=== PATIENT | female | born 1985 | race Caucasian/White ===

== ENCOUNTER 2017-03-12 18:33 | Emergency (ER) | payer OTHER ==
[2017-03-12 18:56] VITALS: BP 126/85
--- NOTE | 2017-03-12 18:58 | EDM.PDOC ---
ED HPI GENERAL MEDICAL PROBLEM - General Chief Complaint: ENT Problem Stated Complaint: LEFT SIDE JAW AND TOOTH PAIN Time Seen by Provider: 03/12/17 18:52 - History of Present Illness INITIAL COMMENTS - FREE TEXT/NARRATIVE: 31-year-old female presents to the emergency room with dental pain. Patient had a root canal left lower molar nearly a month ago and this is starting to get very tender. The patient is taking amoxicillin 500 mg twice a day for sinus infection. She is not entirely sure what the doses of the amoxicillin. Over the last week or so this tooth has progressively been getting worse. She's felt warm at times but isn't sure how warm. The patient has a lot of dental work to be done. 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) Other Treatments EDUCATION INSTRUCTOR: norco Left Face Pain Score (Numeric/FACES): 7 - Related Data Allergies Allergy/AdvReac Type Severity Reaction Status Date / Time No Known Allergies Allergy Verified 03/12/17 18:56 Home Meds: Home Meds Levothyroxine [Synthroid] 50 mcg PO ACBREAKFAST 11/28/14 [History] Sertraline [Zoloft] 1 tab PO DAILY 11/28/14 [History] Zolpidem [Ambien] 1 tab PO BEDTIME PRN 11/28/14 [History] traMADol [Ultram] 2 tab PO Q8HR PRN 11/28/14 [History] Hydrocodone/Acetaminophen [Hydrocodon-Acetaminophen 5-325] 10 - 325 mg PO Q6H PRN 05/30/15 [History] Amoxicillin [IMW: Amoxicillin] 500 mg PO TID 03/12/17 [History] Past Medical History HEENT History: Reports: Impaired Vision Other HEENT History: 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 glasses 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: Musculoskeletal History: Reports: Fibromyalgia Psychiatric History: Reports: Anxiety, Depression Endocrine/Metabolic History: Reports: Hypothyroidism - Past Surgical History HEENT Surgical History: Reports: Tonsillectomy, Other (See Below) Social & Family History - Family History Family Medical History: Noncontributory - Tobacco Use Smoking Status *Q: Current Every Day Smoker Years of Tobacco use: 13 Packs/Tins Daily: 1 Used Tobacco, but Quit: No Second Hand Smoke Exposure: No - Alcohol Use Days Per Week of Alcohol Use: 0 - Recreational Drug Use Recreational Drug Use: No Recreational Drug Use Frequency: Daily - Living Situation & Occupation Living situation: Reports: , with Family Occupation: Unemployed ED ROS ENT - Review of Systems Review Of Systems: See Below Constitutional: Reports: Fever HEENT: Reports: Dental Pain, Sinus Problem. Denies: Ear Pain, Eye Pain Respiratory: Reports: No Symptoms Cardiovascular: Reports: No Symptoms GI/Abdominal: Reports: No Symptoms ED EXAM, ENT - Physical Exam Exam: See Below Exam Limited By: No Limitations General Appearance: Alert, No Apparent Distress Ears: Normal External Exam, Normal Canal, Hearing Grossly Normal, Normal TMs Nose: Normal Inspection Mouth/Throat: Other (She is generally poor dentition posterior pharynx is normal limits normal gums secondary changes to poor dentition. On the affected tooth she appears to have a temporary on top of this at this point there is no surrounding erythema but the tooth is exquisitely tender.) Head: Atraumatic, Normocephalic Neck: Normal Inspection, Supple, Non-Tender. No: Lymphadenopathy (L), Lymphadenopathy (R) Respiratory/Chest: No Respiratory Distress, Lungs Clear, Normal Breath Sounds Cardiovascular: Regular Rate, Rhythm, No Edema, No Murmur Course - Vital Signs Last Recorded V/S: Last Vital Signs Temp 37.2 C 03/12/17 18:49 Pulse 72 03/12/17 18:49 Resp 18 03/12/17 18:49 BP 126/85 03/12/17 18:49 Pulse Ox 100 03/12/17 18:49 - Re-Assessments/Exams Free Text/Narrative Re-Assessment/Exam: 03/12/17 19:19 It is uncertain how much amoxicillin she is taking but she is getting worse while taking the amoxicillin at this point will stop amoxicillin start her on clindamycin 300 mg 3 times daily Departure - Departure Time of Disposition: 19:12 Disposition: Home, Self-Care 01 Clinical Impression: Dental caries - Discharge Information Instructions: Dental Caries Referrals: Anabela Baker PA-C [Primary Care Provider] - Forms: ED Department Discharge Additional Instructions: Return to the emergency room with any questions or problems. You have been started on clindamycin 300 mg #40 from initiating in the waiting room take one 3 times a day until all gone stop the amoxicillin. Followup with your dentist as soon as possible.
== END 2017-03-12 19:23 | disposition home or self-care (01) ==
LOC: JD.ED 18:33
DX: K02.9 Dental caries, unspecified (principal); F41.9 Anxiety disorder, unspecified; F32.9 Major depressive disorder, single episode, unspecified; E03.9 Hypothyroidism, unspecified; F17.210 Nicotine dependence, cigarettes, uncomplicated; Z98.890 Other specified postprocedural states; Z79.899 Other long term (current) drug therapy
CPT/HCPCS: 99283

== ENCOUNTER 2018-03-09 16:50 | Emergency (ER) | payer OTHER ==
[2018-03-09 17:08] VITALS: BP 111/82
--- NOTE | 2018-03-09 17:36 | EDM.PDOC ---
ED HPI GENERAL MEDICAL PROBLEM - General Chief Complaint: Lower Extremity Injury/Pain Stated Complaint: RIGHT PINKY TOE INJURY Time Seen by Provider: 03/09/18 17:00 Source of Information: Reports: Patient History Limitations: Reports: No Limitations - History of Present Illness INITIAL COMMENTS - FREE TEXT/NARRATIVE: This is a 32 year old female who comes in after accidentally bumping her right 5th toe into a brick. She states the toe dislocated out to the side and she was able to reduce it back herself. She said she heard a "popping" noise when she put it back in place. She stated she was in a lot of pain so she took 1/2 hydrocodone that she has for her fibromyalgia and the pain has gone down to 3/ 10. She is unable to put her shoe on without pain and is concerned she may have fractured the toe. This is the first time this has ever happened. No other symptoms. 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: Other (see below) Other Treatments EQUIPMENT MAN: hydrocodone Right 5-Little toe Pain Score (Numeric/FACES): 4 - Related Data Allergies Allergy/AdvReac Type Severity Reaction Status Date / Time No Known Allergies Allergy Verified 03/12/17 18:56 Home Meds: Home Meds Levothyroxine [Synthroid] 50 mcg PO ACBREAKFAST 11/28/14 [History] Sertraline [Zoloft] 1 tab PO DAILY 11/28/14 [History] Zolpidem [Ambien] 1 tab PO BEDTIME PRN 11/28/14 [History] traMADol [Ultram] 2 tab PO Q8HR PRN 11/28/14 [History] Hydrocodone/Acetaminophen [Hydrocodon-Acetaminophen 5-325] 10 - 325 mg PO Q6H PRN 05/30/15 [History] Past Medical History HEENT History: Reports: Impaired Vision 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: Musculoskeletal History: Reports: Fibromyalgia Psychiatric History: Reports: Anxiety, Depression Endocrine/Metabolic History: Reports: Hypothyroidism - Past Surgical History HEENT Surgical History: Reports: Tonsillectomy, Other (See Below) Social & Family History - Family History Family Medical History: Noncontributory - Tobacco Use Smoking Status *Q: Former Smoker Used Tobacco, but Quit: Yes Month/Year Tobacco Last Used: 6 months - Caffeine Use Caffeine Use: Reports: Coffee, Soda - Recreational Drug Use Recreational Drug Use: No - Living Situation & Occupation Living situation: Reports: , with Family Occupation: Unemployed Review of Systems - Review of Systems Review Of Systems: See Below Constitutional: Reports: No Symptoms Ears: Reports: No Symptoms Respiratory: Reports: No Symptoms Cardiovascular: Reports: No Symptoms Musculoskeletal: Reports: Joint Pain (right 5th toe 3/10 pain) Skin: Reports: Bruising (right 5th toe) Neurological: Reports: No Symptoms ED EXAM, GENERAL - Physical Exam Exam: See Below Exam Limited By: No Limitations General Appearance: Alert, WD/WN, Mild Distress Ears: Hearing Grossly Normal Respiratory/Chest: No Respiratory Distress, Lungs Clear, Normal Breath Sounds, No Accessory Muscle Use, Chest Non-Tender Cardiovascular: Normal Peripheral Pulses, Regular Rate, Rhythm Peripheral Pulses: 3+: Posterior Tibial (L), Posterior Tibial (R), Dorsalis Pedis (L), Dorsalis Pedis (R) Back Exam: Normal Inspection, Full Range of Motion, NT Extremities: Normal Inspection, Normal Capillary Refill, Joint Swelling (right 5th toe, 3/10 pain) Neurological: Alert, Oriented, CN II-XII Intact (grossly), Normal Cognition, No Motor/Sensory Deficits Skin Exam: Warm, Dry, Intact, Normal Color, No Rash, Erythema (right 5th toe), Increased Warmth (right 5th toe), Other (contusion to right 5th toe) ED TRAUMA EXTREMITY PROCEDURES - Splinting Right 5th Digit Pre-Procedure NV Status: Normal Post-Procedure NV Status: Normal Splint Material: Candido Tape Applied & Form Fitted By: Nurse Provider Post-Splint Application NV Check: NV Status Normal Complications: No Course - Vital Signs Last Recorded V/S: Last Vital Signs Temp 98.8 F 03/09/18 17:05 Pulse 74 03/09/18 17:05 Resp 20 03/09/18 17:05 BP 111/82 03/09/18 17:05 Pulse Ox 99 03/09/18 17:05 - Re-Assessments/Exams Free Text/Narrative Re-Assessment/Exam: 03/09/18 17:42 Offered Xray but explained would not change treatment plan. Pt would like to forgo the Xray. Pt right 5th toe candido-taped to right 4th toe, pt will be discharged with post- op shoe. Departure - Departure Time of Disposition: 17:30 Disposition: Home, Self-Care 01 Condition: Good Clinical Impression: Closed fracture of phalanx of foot - Discharge Information Instructions: Toe Fracture, [id number] Referrals: Anabela Baker PA-C [Primary Care Provider] - Forms: ED Department Discharge Additional Instructions: Keep the toe taped to the toe directly next to it- "Candido tape" will act as a splint for the toe to heal properly Keep the area clean and protected- Wear the post-op shoe until you are able to wear normal footwear again Rest, Ice, pain management as needed. Return to ED if worsening of symptoms. Follow up with your primary care provider as needed.
== END 2018-03-09 18:10 | disposition home or self-care (01) ==
LOC: JD.ED 16:50
DX: S92.501A Displaced unspecified fracture of right lesser toe(s), initial encounter for closed fracture (principal); W22.8XXA Striking against or struck by other objects, initial encounter
CPT/HCPCS: 99283

== ENCOUNTER 2018-06-12 19:13 | Emergency (ER) | payer OTHER ==
[2018-06-12 19:32] VITALS: BP 148/103
--- NOTE | 2018-06-12 20:18 | EDM.PDOC ---
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 She has not had a fever. She saw her PCP, Anabela Baker, on 06/04/2018. The patient states that no tests or chest x-ray were performed, however, the patient was prescribed both clindamycin and prednisone. The patient does not know what her diagnosis was. She states that she took these medicines and initially felt that she was improving, however, she accidentally skipped her prednisone this past Monday and Monday, 06/08/2018 , 06/09/2018, and states that she started feeling worse, with swelling of her shoulders, neck, and face. She states that she also was hot to the touch. When she resumed the prednisone on 06/10/2018, she states that she started feeling better, but now feels worse again today. The patient is also concerned that she may have a retained partial tampon, although does not recall removing a broken tampon. She states that her LMP ended approximately 10 days ago. She is concerned because she states that she has a whitish with blood-tinged vaginal discharge that is malodorous. No itch. She reports pelvic pain for the past 3 days. The patient reports that she has a Mirena IUD. She is concerned that a retained partial tampon may be the cause of all of her symptoms. Pelvic Pain Score (Numeric/FACES): 2 - Related Data Allergies Allergy/AdvReac Type Severity Reaction Status Date / Time No Known Allergies Allergy Verified 06/12/18 19:32 Home Meds: Home Meds Levothyroxine [Synthroid] 50 mcg PO BEDTIME 11/28/14 [History] Sertraline [Zoloft] 1 tab PO BEDTIME 11/28/14 [History] Zolpidem [Ambien] 1 tab PO BEDTIME PRN 11/28/14 [History] traMADol [Ultram] 2 tab PO Q8HR PRN 11/28/14 [History] Hydrocodone/Acetaminophen [Hydrocodon-Acetaminophen 5-325] 10 - 325 mg PO Q6H PRN 05/30/15 [History] Past Medical History HEENT History: Reports: Impaired Vision Other HEENT History: Wears glasses 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: Psychiatric History: Reports: Anxiety, Depression, Other (See Below) ( Fibromyalgia) Endocrine/Metabolic History: Reports: Hypothyroidism, Obesity/BMI 30+ - Past Surgical History HEENT Surgical History: Reports: Myringotomy w Tube(s) (bilateral), Oral Surgery (wisdom teeth extraction), Tonsillectomy Social & Family History - Family History Family Medical History: Noncontributory - Tobacco Use Smoking Status *Q: Former Smoker Years of Tobacco use: 14 Packs/Tins Daily: 0.5 Month/Year Tobacco Last Used: Quit 2016 - Caffeine Use Caffeine Use: Reports: Coffee, Soda - Alcohol Use Alcohol Use History: Yes Alcohol Use Frequency: Socially - Recreational Drug Use Recreational Drug Use: No - Living Situation & Occupation Living situation: Reports: , with Spouse, with Family (3 kids + ' s parents) Occupation: Unemployed ED ROS GENERAL - Review of Systems Review Of Systems: ROS reveals no pertinent complaints other than HPI. ED EXAM, GENERAL - Physical Exam Exam: See Below Exam Limited By: No Limitations General Appearance: Alert, WD/WN, No Apparent Distress Eye Exam: Bilateral Eye: EOMI, Normal Inspection Ears: Normal External Exam, Normal Canal, Hearing Grossly Normal, Other (Scar noticed on the right TM, but no associated erythema or bulging, and the right canal is normal. Left ear exam entirely normal.) Nose: Normal Inspection, No Blood, Other (Bilateral nasal mucosa edema) Throat/Mouth: Normal Inspection, Normal Lips, Normal Teeth, Normal Gums, Normal Oropharynx, Normal Voice, No Airway Compromise Head: Atraumatic, Normocephalic Neck: Normal Inspection, Supple, Non-Tender, Full Range of Motion. No: Lymphadenopathy (L), Lymphadenopathy (R) Respiratory/Chest: No Respiratory Distress, Lungs Clear, Normal Breath Sounds, No Accessory Muscle Use. No: Crackles, Rhonchi, Wheezing, Prolonged Expiration Cardiovascular: Normal Peripheral Pulses, Regular Rate, Rhythm, No Edema, No Gallop, No JVD, No Murmur, No Rub Peripheral Pulses: 4+: Radial (L), Radial (R) GI/Abdominal: Normal Bowel Sounds, Soft, Non-Tender, No Organomegaly, No Distention, No Abnormal Bruit, No Mass, Other (Obese) (Female) Exam: Normal External Exam, Normal Speculum Exam, Other (No foreign body, tampon or otherwise, found. Vaginal wet prep and culture obtained). No: Cervical Discharge, Vaginal Bleeding, Vaginal Discharge, Vaginal Lesions Rectal (Female) Exam: Deferred Back Exam: Normal Inspection, Full Range of Motion, NT Extremities: Normal Inspection, Normal Range of Motion, No Pedal Edema, Normal Capillary Refill Neurological: Alert, Oriented, Normal Cognition, No Motor/Sensory Deficits Psychiatric: Normal Affect Skin Exam: Warm, Dry, Intact, Normal Color, No Rash Course - Vital Signs Last Recorded V/S: Last Vital Signs Temp 36.7 C 06/12/18 19:28 Pulse 73 06/12/18 19:28 Resp 18 06/12/18 19:28 BP 148/103 H 06/12/18 19:28 Pulse Ox 99 06/12/18 19:28 - Orders/Labs/Meds Orders: Active Orders 24 hr Category Date Time Status Chest 2V [CR] Stat Exams 06/12/18 19:56 Taken CULTURE GENITAL [RM] Stat Lab 06/12/18 20:08 Received Labs: Laboratory Tests 06/12/18 06/12/18 Range/Units 20:16 20:16 WBC 15.67 H (3.98-10.04) K/mm3 RBC 4.67 (3.98-5.22) M/mm3 Hgb 13.2 (11.2-15.7) gm/L Hct 39.7 (34.1-44.9) % MCV 85.0 (79.4-94.8) fl MCH 28.3 (25.6-32.2) pg MCHC 33.2 (32.2-35.5) g/dl RDW Std Deviation 42.8 (36.4-46.3) fL Plt Count 415 H (182-369) K/mm3 MPV 9.1 L (9.4-12.3) fl Neutrophils % (Manual) 83 H (40-60) % Band Neutrophils % 0 (0-10) % Lymphocytes % (Manual) 14 L (20-40) % Atypical Lymphs % 0 % Monocytes % (Manual) 2 (2-10) % Eosinophils % (Manual) 0 L (0.7-5.8) % Basophils % (Manual) 0 L (0.1-1.2) Myelocytes % 1 Platelet Estimate Adequate Plt Morphology Comment Normal RBC Morph Comment Normal Sodium 140 (136-145) mEq/L Potassium 4.0 (3.5-5.1) mEq/L Chloride 104 (98-107) mEq/L Carbon Dioxide 25 (21-32) mEq/L Anion Gap 15.0 (5-15) BUN 14 (7-18) mg/dL Creatinine 0.8 (0.55-1.02) mg/dL Est Cr Clr Drug Dosing 95.38 mL/min Estimated GFR (MDRD) > 60 (>60) mL/min BUN/Creatinine Ratio 17.5 (14-18) Glucose 100 (74-106) mg/dL Calcium 8.8 (8.5-10.1) mg/dL Total Bilirubin 0.1 L (0.2-1.0) mg/dL AST 17 (15-37) U/L ALT 28 (14-59) U/L Alkaline Phosphatase 124 H (46-116) U/L Total Protein 8.1 (6.4-8.2) g/dl Albumin 3.7 (3.4-5.0) g/dl Globulin 4.4 gm/dL Albumin/Globulin Ratio 0.8 L (1-2) - Re-Assessments/Exams Free Text/Narrative Re-Assessment/Exam: 06/12/18 20:42 2-view chest radiograph appears to be grossly normal. Cardiac silhouette is within normal limits. No pulmonary vascular congestion. No pleural effusions. No focal infiltrate. No pneumothorax. Formal read per the Radiologist pending. 06/12/18 21:15 Test results discussed with the patient and her . It appears that the patient has a viral URI with cough. I explained that there are no prescription or kioj-[id number] medicines that will help with this condition, that it will simply have to run its course. I am recommending that she discontinue both the clindamycin and prednisone that she was prescribed 8 days ago - I see no indication for either of them. I also explained that I found no abnormality on her vaginal exam, and that her wet prep returned normal. Departure - Departure Time of Disposition: 21:17 Disposition: Home, Self-Care 01 Condition: Good Clinical Impression: Viral URI with cough - Discharge Information *PRESCRIPTION DRUG MONITORING PROGRAM REVIEWED*: Not Applicable *COPY OF PRESCRIPTION DRUG MONITORING REPORT IN PATIENT BROOKE: Not Applicable Referrals: Anabela Baker PA-C [Primary Care Provider] - Forms: ED Department Discharge Additional Instructions: You were seen in the emergency room for nasal and chest congestion and cough, and shortness of breath, as well as for concern about a possible retained tampon. Workup in the ER included blood work, a chest x-ray, a vaginal wet prep, and vaginal culture. Your entire workup was unremarkable. You do not have pneumonia. You do not have bronchitis. No tampon or other foreign body was found in your vagina, your pelvic exam appeared to be normal, and your wet prep returned entirely normal. Based on your history, physical examination, lab tests, and chest x-ray, you are MOST LIKELY suffering from a viral URI with cough. We recommend that you discontinue the clindamycin and prednisone that you were prescribed 8 days ago, as they will not help you, and could hurt. We recommend that you throw the remaining clindamycin away in the trash. Do not flush it down the toilet. Unfortunately, there are no [id number] medicines to help with a viral URI - it will simply have to run its course. Follow-up with your PCP, Anabela Baker, as needed. If any other problems, please do not hesitate to return to the ER. - My Orders Last 24 Hours: My Active Orders 06/12/18 19:56 Chest 2V [CR] Stat 06/12/18 20:08 CULTURE GENITAL [RM] Stat - Assessment/Plan Last 24 Hours: My Active Orders 06/12/18 19:56 Chest 2V [CR] Stat 06/12/18 20:08 CULTURE GENITAL [RM] Stat
--- NOTE | 2018-06-13 07:19 | CR ---
Chest: Two views of the chest were obtained. Comparison: Prior chest x-ray of 04/08/14. Heart size and mediastinum are normal. Lungs are clear. Bony structures are unremarkable. Diaphragms are flattened on the lateral view compatible with hyperinflation. Impression: 1. Lungs are hyperinflated. Please correlate if patient has history of asthma. 2. Nothing acute is otherwise seen on two-view chest x-ray. Diagnostic code #2
== END 2018-06-12 21:30 | disposition home or self-care (01) ==
LOC: JD.ED 19:13
DX: J06.9 Acute upper respiratory infection, unspecified (principal); E66.9 Obesity, unspecified; E03.9 Hypothyroidism, unspecified; Z79.899 Other long term (current) drug therapy; Z87.891 Personal history of nicotine dependence
CPT/HCPCS: 36415; 71046; 71046-26; 80053; 85007; 85027; 87070; 87077; 87186; 87210; 87808; 99283; 99284

== ENCOUNTER 2020-11-14 16:04 | Emergency (ER) | payer OTHER ==
[2020-11-14] MEDS ORDERED: HYDROmorphone 1 MG/ML Syringe IM ONE (16:37)
[2020-11-14] MEDS ORDERED: Promethazine 25 MG/ML SDV IM ONE (16:37)
--- NOTE | 2020-11-14 16:44 | EDM.PDOC ---
ED HPI GENERAL MEDICAL PROBLEM - General Chief Complaint: Back Pain or Injury Stated Complaint: RASH/NECK AND BACK PAIN/POST HERNIA SURGERY Time Seen by Provider: 11/14/20 16:37 Source of Information: Reports: Patient, Family (spouse) History Limitations: Reports: No Limitations - History of Present Illness INITIAL COMMENTS - FREE TEXT/NARRATIVE: 35-year-old female presents to the ED in the accompaniment of her . Patient had laparoscopic assisted bilateral inguinal hernia raphe repair on November 12. Is currently you have developed diffuse musculoskeletal pain particular in your upper back more so on the right side than on the left side with marked paraspinal muscle spasm on examination. Diffuse lower back or lumbar spine pain is evident as well on examination. It appears that you are suffering an exacerbation of your fibromyalgia syndrome. Pain from surgery is inadequately controlled at present. I believe that if we can keep the pain under control you will feel more relaxed and be able to breathe a bit better. There is seems to be no problems with your lungs in terms of good air entry to both lung oleary and oxygen levels were 99 to 100% while in the ED. No concerns identified for blood clots etc. You have a diffuse slightly erythematous rash which has the characteristic of sandpaper across your upper abdomen from below the breasts to the lateral aspects of both sides of your abdomen which is in the distribution that Betadine was placed during your surgery. Betadine is a sterilization agents to prevent bacterial infection from occurring from surgery. Its major ingredient is iodine which you appear to be allergic to. This is caused a contact dermatitis in this area. Treatment is to be triamcinolone 0.1% cream to be applied to this area twice daily until gone. Expect marked improvement in about 3 days time. Surgical wounds are healing well at this time. Note today and tomorrow are your worse days postop and then you will start to improve. It usually takes a full 7 to 8 days to start to recover fully from the type of surgery you have undergone. Onset: Gradual Onset Date: 11/13/20 Duration: Day(s):, Constant, Getting Worse Location: Reports: Abdomen (Generalized abdominal rash which is burning and itching.), Back (Use upper and lower back pain worse on the right side as compared to the left.), Other (Sense of difficulty breathing but oxygen levels are normal at 99%.) Quality: Reports: Other (Back pain is described as deep aching muscle pain worse with movement such as breathing or coughing. Even moving her neck i.e. flexion- extension makes the back pain worse. She has a subjective sensation of dyspnea but again it appears to be more musculoskeletal in origin as the oxygen levels are 99% on room air. She has a diffuse sandpaperlike slightly raised rash across her abdomen in the distribution of Betadine application for her abdominal surgery.) Severity: Moderate (8 out of 10) Improves with: Reports: None, Other (Patient has been using a combination of Dupree, tramadol which she has been on for many years and 1 tablet of Percocet 5/325 mg every 6 hours with no relief of the pain.) Worsens with: Reports: Other (Deep breathing walking), Movement Context: Reports: Other (Patient has chronic fibromyalgia syndrome which I believe is been aggravated by recent surgery on her abdomen.). Denies: Activity, Exercise, Lifting, Sick Contact, Trauma Associated Symptoms: Reports: Loss of Appetite, Malaise, Rash, Other (Diffuse musculoskeletal pain particularly upper back). 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 INTEL: Reports: Other (see below) Upper Back Pain Score (Numeric/FACES): 8 - Related Data Allergies Allergy/AdvReac Type Severity Reaction Status Date / Time No Known Allergies Allergy Verified 11/14/20 16:30 Home Meds: Home Meds Levothyroxine [Synthroid] 50 mcg PO BEDTIME 11/28/14 [History] Sertraline [Zoloft] 1 tab PO BEDTIME 11/28/14 [History] Zolpidem [Ambien] 1 tab PO BEDTIME PRN 11/28/14 [History] traMADol [Ultram] 2 tab PO Q8HR PRN 11/28/14 [History] Hydrocodone/Acetaminophen [Hydrocodon-Acetaminophen 5-325] 10 - 325 mg PO Q6H PRN 05/30/15 [History] Triamcinolone Acetonide [Kenalog 0.1% Crm] 30 gm .XX BID #1 tube 11/14/20 [Rx] oxyCODONE 5 mg PO Q6H PRN 11/14/20 [History] oxyCODONE HCl/Acetaminophen [Percocet 5-325 mg Tablet] 1 - 2 each PO Q4H PRN #20 tablet 11/14/20 [Rx] Past Medical History HEENT History: Reports: Impaired Vision Other HEENT History: Wears glasses 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: Musculoskeletal History: Reports: Fibromyalgia Psychiatric History: Reports: Anxiety, Depression, Other (See Below) Endocrine/Metabolic History: Reports: Hypothyroidism, Obesity/BMI 30+ - Past Surgical History HEENT Surgical History: Reports: Myringotomy w Tube(s), Oral Surgery, Tonsillectomy GI Surgical History: Reports: Hernia, Abdominal Social & Family History - Family History Family Medical History: No Pertinent Family History - Caffeine Use Caffeine Use: Reports: Coffee, Soda - Living Situation & Occupation Living situation: Reports: , with Spouse, with Family (3 kids + 's parents) Occupation: Unemployed ED [facility] GENER[facility] - Review of Systems Review Of Systems: See Below Constitutional: Reports: Malaise, Weakness, Fatigue (Sleep), Decreased Appetite ( due to back pain). Denies: Fever, Chills HEENT: Reports: No Symptoms Respiratory: Reports: Shortness of Breath. Denies: Wheezing, Pleuritic Chest Pain, Cough, Sputum, Hemoptysis, Other Cardiovascular: Reports: Lightheadedness. Denies: Chest Pain, Blood Pressure Problem, Claudication, Dyspnea on Exertion, Edema, Orthopnea, Palpitations Endocrine: Reports: Fatigue GI/Abdominal: Reports: Abdominal Pain (At surgical sites umbilicus right lower quadrant left upper quadrant.), Decreased Appetite, Nausea. Denies: Constipation, Diarrhea, Difficulty Swallowing, Distension, Flatus, Hematemesis, Hematochezia, Melena, Mucous in Stool, Vomiting, Other : Reports: No Symptoms Musculoskeletal: Reports: No Symptoms, Shoulder Pain, Back Pain (Gus thoracic back pain worse on the right side as compared to the left. Diffuse pain also throughout the lumbar spine.), Other (Is on tramadol daily due to fibromyalgia syndrome.) Skin: Reports: Other (And rash which is itching and burning across the entire abdomen from costal margins down to inguinal areas and to mid axillary line bilaterally. This is in the distribution of Betadine that was placed to cleanse the abdomen prior to surgery) Neurological: Reports: No Symptoms, Dizziness, Headache, Difficulty Walking (Back pain), Weakness. Denies: Numbness, Paresthesia, Pre-Existing Deficit, Syncope (Mild), Tingling, Tremors, Trouble Speaking Psychiatric: Reports: Depression ED EXAM, UPPER BACK/NECK PAIN - Physical Exam Exam: See Below Exam Limited By: No Limitations General Appearance: Alert, WD/WN, Moderate Distress, Other (Patient appears to be feeling quite uncomfortable. Temperature is 36.8. Heart rate 81 and sinus respiratory 16 with O2 sats 99% room air BP 128/82.) Eye Exam: Bilateral Eye: Normal Inspection, PERRL (No blepharal pallor or scleral icterus.) Neck Exam: Normal Alignment, Normal Inspection, Muscle Spasm (Patient has mild bilateral paraspinal muscles tenderness adjacent to her cervical spine. Full flexion of the neck exacerbates her thoracic back pain.), Painful Range of Motion, Paraspinous Muscle Tender Nexus Criteria: No: Posterior, Midline Cervical Tenderness, Evidence of Intoxication, Altered Level of Consciousness, Painful Distraction Injuries Cardiovascular/Respiratory: Regular Rate, Rhythm, No M/R/G, Normal Peripheral Pulses, No JVD, Normal Breath Sounds, No Respiratory Distress GI/Abdominal: Normal Bowel Sounds, Soft, Non-Tender, No Organomegaly, Pelvis Stable, Other (Multiple surgical wounds that have been closed with skin glue appear to be healing adequately. These are from a laparoscopic surgical wounds.) Back Exam: Decreased Range of Motion, Muscle Spasm (She has diffuse paraspinal muscles tenderness and spasm throughout the thoracic spine worse on the right side as compared to the left. Diffuse tenderness throughout the lumbar spine paraspinal musculature as well without significant spasm.) Extremities: Normal Inspection, Normal Range of Motion, Non-Tender, No Pedal Edema Neurologic: director of operations for therapy II-XII nml As Tested, No Motor/Sensory Deficits, Alert, Normal Mood/Affect, Oriented x 3 Psychiatric: Tearful Skin Exam: Normal Color, Warm/Dry Lymphatic: No Adenopathy Course - Vital Signs Last Recorded V/S: Last Vital Signs Temp 36.9 C 11/14/20 17:08 Pulse 79 11/14/20 17:08 Resp 16 11/14/20 17:08 BP 122/79 11/14/20 17:08 Pulse Ox 100 11/14/20 17:08 - Orders/Labs/Meds Meds: Medications Discontinued Medications Generic Name Dose Route Start Last Admin Trade Name Freq PRN Reason Stop Dose Admin Hydromorphone HCl 1 mg 11/14/20 16:37 11/14/20 16:50 Dilaudid IM 11/14/20 16:38 1 mg ONETIME ONE Administration Promethazine HCl 25 mg 11/14/20 16:37 11/14/20 16:50 Phenergan IM 11/14/20 16:38 25 mg ONETIME ONE Administration - Radiology Interpretation Free Text/Narrative:: 35-year-old female presents to the ED for evaluation of diffuse since having surgery a laparoscopic-assisted inguinal hernia repair bilaterally was done on November 12. He takes tramadol 50 mg 4 times daily for fibromyalgia syndrome. She has been using few tablets of Dupree 5/325 mg strength without much relief. She has been taking Percocet tabs 5 325 mg strength 1 every 6 hours with out satisfactory pain relief. Is also been using Motrin 600 mg every 6 hours as instructed. Exam reveals diffuse paraspinal muscle tenderness throughout the thoracic spine worse on the right side as compared to the left. No definitive rib head subluxation identified although rib heads 10 and 11 on the right side are slightly prominent. Good air entry to both lung oleary although she has a subjective sensation of dyspnea. I believe it is secondary to musculoskeletal pain. Rash on her abdomen is secondary to allergy to Betadine i.e. the iodine component is produced a scarlatiniform itchy rash across the abdomen from costal margin down to the inguinal area and to the mid axillary line bilaterally. This will be treated with triamcinolone cream 0.1% to be applied twice daily until better. She was treated with an intramuscular injection of Dilaudid 1 mg and Phenergan 25 mg in the ED for acute back pain and musculoskeletal pain relief. Advised heat application to sore areas 1/2-hour out of every 4 hours while at home. She was reassured that today and tomorrow will be her worst days postoperative Tristan and then things will start to slowly improve. Discharged with prescription for Percocet 5/325mg tabs --1-2 tabs Q 4hrs prn for pain relief. 20 tabs provided. Follow-up with surgeon as planned. Departure - Departure Time of Disposition: 17:03 Disposition: Home, Self-Care 01 Condition: Fair Clinical Impression: Acute bilateral thoracic back pain Contact dermatitis Qualifiers: Contact dermatitis type: irritant Contact dermatitis trigger: other chemical product Qualified Code(s): L24.5 - Irritant contact dermatitis due to other chemical products - Discharge Information *PRESCRIPTION DRUG MONITORING PROGRAM REVIEWED*: Not Applicable *COPY OF PRESCRIPTION DRUG MONITORING REPORT IN PATIENT BROOKE: Not Applicable Prescriptions: Triamcinolone Acetonide [Kenalog 0.1% Crm] 30 gm .XX BID #1 tube oxyCODONE HCl/Acetaminophen [Percocet 5-325 mg Tablet] 1 - 2 each PO Q4H PRN #20 tablet PRN Reason: pain relief. Instructions: Acute Back Pain, Adult, Contact Dermatitis, [id number] Referrals: Anabela Baker PA-C [Primary Care Provider] - Forms: ED Department Discharge Additional Instructions: Evaluation in the emergency room today in regards to generalized pain particular in your upper back worse on the right side as compared to the left with paraspinal muscle spasm on examination. Also some diffuse pain in the lower back which appears to be musculoskeletal in origin as well. You have a history of fibromyalgia which appears to been exacerbated by recent surgery. Surgical wounds from bilateral inguinal hernia repair are healing adequately. There is a diffuse contact dermatitis rash across the entire abdomen secondary to allergic reaction to iodine or Betadine solution used to cleanse the skin and prevent wound infection from surgery. I would advise no further use of Betadine or added to your list of allergies. Treatment is Kenalog 0.1% cream to be applied to the area twice daily until better. Usually was should be markedly improved in 3 days time. Continue pain management with Percocet 5/325 mg tabs 1 or 2 every 4-6 hours as necessary for pain relief in combination with Motrin 600 mg every 6 hours to relieve pain and inflammation. Continue stool softeners on a daily basis to prevent constipation from pain medications.You did recieve an injection of Dilaudid and Phenergan in the ED for acute relief of pain and nausea. Likely cause some degree of sedation and you may well have to have a nap for a few hours. Heating pad to upper back for 1/2-hour out of every 4 hours will help relieve some of the musculoskeletal pain as well. Sepsis Event Note (ED) - Evaluation Sepsis Screening Result: No Definite Risk - Focused Exam Vital Signs: Vital Signs Temp Pulse Resp BP Pulse Ox 11/14/20 17:08 36.9 C 79 16 122/79 100 11/14/20 16:28 36.8 C 81 16 128/82 98
[2020-11-14 17:09] VITALS: BP 122/79; PULSE 79
== END 2020-11-14 17:09 | disposition home or self-care (01) ==
LOC: JD.ED 16:04
DX: M54.6 Pain in thoracic spine (principal); L24.5 Irritant contact dermatitis due to other chemical products; E03.9 Hypothyroidism, unspecified; E66.9 Obesity, unspecified; Z79.899 Other long term (current) drug therapy
CPT/HCPCS: 96372; 99283; J1170; J2550; 99284

== ENCOUNTER 2021-01-14 14:47 | Emergency (ER) | payer OTHER ==
[2021-01-14 15:29] VITALS: BP 145/87; PULSE 82
[2021-01-14] MEDS ORDERED: Clindamycin HCl 150 MG Cap PO ONE (15:57)
--- NOTE | 2021-01-14 15:57 | EDM.PDOC ---
ED HPI GENERAL MEDICAL PROBLEM - General Chief Complaint: Respiratory Problem Stated Complaint: CHEST PAIN/EAR COMPLAINT/COVID+ Time Seen by Provider: 01/14/21 15:48 Source of Information: Reports: Patient, RN Notes Reviewed History Limitations: Reports: No Limitations - History of Present Illness INITIAL COMMENTS - FREE TEXT/NARRATIVE: Patient is a 35-year-old female who presents to the ER for the evaluation of her multiple complaints. Patient is Covid positive, was diagnosed on January 06. Patient notes that she was seen at the drive-through for her suspicious symptoms, patient has been staying at home and has been quarantined. She notes she has had a cough, congestion, ear pain, chest discomfort/pressure, and her whole head just feels "plugged". Patient notes that she usually gets a sinus infection after resulted virus, so she became worried about that. She is not had any fevers or chills this. She notes she has a history of chronic pain syndrome,, she is not getting any colored sputum up with and states that the myalgias have been pretty severe. She is having some nausea and vomiting, and she notes that her primary care provider did provide her with some nausea meds for this. She is not had any overlying diarrhea. She also concerned about an upper left dental complaint, she states that she has had pain in this tooth before, but notes that she is likely not able to get into the dentist while being quarantined for COVID-19. She was unsure about how to get antibiotics for this. Bilateral Ear Pain Score (Numeric/FACES): 5 - Related Data Allergies Allergy/AdvReac Type Severity Reaction Status Date / Time No Known Allergies Allergy Verified 11/14/20 16:30 Home Meds: Home Meds Levothyroxine [Synthroid] 50 mcg PO BEDTIME 11/28/14 [History] Sertraline [Zoloft] 150 mg PO BEDTIME 11/28/14 [History] Zolpidem [Ambien] 10 mg PO BEDTIME 11/28/14 [History] traMADol [Ultram] 2 tab PO TID 11/28/14 [History] Hydrocodone/Acetaminophen [Hydrocodon-Acetaminophen 5-325] 10 - 325 mg PO Q6H PRN 05/30/15 [History] Triamcinolone Acetonide [Kenalog 0.1% Crm] 30 gm .XX BID #1 tube 11/14/20 [Rx] Clindamycin HCl 300 mg PO TID 7 Days #21 capsule 01/14/21 [Rx] Past Medical History HEENT History: Reports: Impaired Vision Other HEENT History: 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 glasses 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: Musculoskeletal History: Reports: Fibromyalgia Psychiatric History: Reports: Anxiety, Depression Endocrine/Metabolic History: Reports: Hypothyroidism, Obesity/BMI 30+ - Infectious Disease History Infectious Disease History: Reports: Novel Coronavirus - Past Surgical History HEENT Surgical History: Reports: Myringotomy w Tube(s), Oral Surgery, Tonsillectomy GI Surgical History: Reports: Hernia, Abdominal Social & Family History - Family History Family Medical History: No Pertinent Family History - Tobacco Use Tobacco Use Status *Q: Current Every Day Tobacco User Years of Tobacco use: 12 Packs/Tins Daily: 0.3 - Caffeine Use Caffeine Use: Reports: Tea - Recreational Drug Use Recreational Drug Use: No - Living Situation & Occupation Living situation: Reports: , with Spouse, with Family (3 kids + 's parents) Occupation: Unemployed ED ROS GENERAL - Review of Systems Review Of Systems: Comprehensive ROS is negative, except as noted in HPI. ED EXAM, GENERAL - Physical Exam Exam: See Below Exam Limited By: No Limitations General Appearance: Alert, WD/WN, No Apparent Distress Ears: Normal External Exam, Normal Canal, Hearing Grossly Normal, Normal TMs Throat/Mouth: Normal Inspection, Normal Lips, Normal Teeth (there is dental pain to left upper molar area), Normal Gums, Normal Oropharynx, Normal Voice, No Airway Compromise Head: Atraumatic, Normocephalic Neck: Normal Inspection Respiratory/Chest: No Respiratory Distress, Lungs Clear, Normal Breath Sounds, No Accessory Muscle Use, Chest Non-Tender Cardiovascular: Normal Peripheral Pulses, Regular Rate, Rhythm, No Edema Peripheral Pulses: 2+: Radial (L), Radial (R) Extremities: Normal Inspection, Normal Capillary Refill Neurological: Alert, Oriented, Normal Cognition, No Motor/Sensory Deficits Psychiatric: Normal Affect, Normal Mood Skin Exam: Warm, Dry, Intact, Normal Color, No Rash Course - Vital Signs Last Recorded V/S: Last Vital Signs Temp 97.2 F 01/14/21 15:28 Pulse 82 01/14/21 15:28 Resp 20 01/14/21 15:28 BP 145/87 H 01/14/21 15:28 Pulse Ox 100 01/14/21 15:28 - Orders/Labs/Meds Labs: Laboratory Tests 01/14/21 01/14/21 Range/Units 16:16 16:16 WBC 2.82 L (3.98-10.04) K/mm3 RBC 4.16 (3.98-5.22) M/mm3 Hgb 12.2 (11.2-15.7) gm/dl Hct 36.7 (34.1-44.9) % MCV 88.2 D (79.4-94.8) fl MCH 29.3 (25.6-32.2) pg MCHC 33.2 (32.2-35.5) g/dl RDW Std Deviation 41.1 (36.4-46.3) fL Plt Count 249 D (182-369) K/mm3 MPV 9.4 (9.4-12.3) fl Neut % (Auto) 50.3 (34.0-71.1) % Lymph % (Auto) 42.6 (19.3-51.7) % [place] % (Auto) 6.4 (4.7-12.5) % Eos % (Auto) 0.7 (0.7-5.8) Baso % (Auto) 0.0 L (0.1-1.2) % Neut # (Auto) 1.42 L (1.56-6.13) K/mm3 Lymph # (Auto) 1.20 (1.18-3.74) K/mm3 [place] # (Auto) 0.18 L (0.24-0.36) K/mm3 Eos # (Auto) 0.02 L (0.04-0.36) K/mm3 Baso # (Auto) 0.00 L (0.01-0.08) K/mm3 Sodium 144 (136-145) mEq/L Potassium 3.5 (3.5-5.1) mEq/L Chloride 105 (98-107) mEq/L Carbon Dioxide 30 (21-32) mEq/L Anion Gap 12.5 (5-15) BUN 9 (7-18) mg/dL Creatinine 0.7 (0.55-1.02) mg/dL Est Cr Clr Drug Dosing 106.01 mL/min Estimated GFR (MDRD) > 60 (>60) mL/min BUN/Creatinine Ratio 12.9 L (14-18) Glucose 92 (74-106) mg/dL Calcium 7.8 L (8.5-10.1) mg/dL Total Bilirubin 0.2 (0.2-1.0) mg/dL AST 15 (15-37) U/L ALT 24 (14-59) U/L Alkaline Phosphatase 91 (46-116) U/L Total Protein 7.2 (6.4-8.2) g/dl Albumin 3.6 (3.4-5.0) g/dl Globulin 3.6 gm/dL Albumin/Globulin Ratio 1.0 (1-2) Meds: Medications Discontinued Medications Generic Name Dose Route Start Last Admin Trade Name Jordanq PRN Reason Stop Dose Admin Clindamycin HCl 600 mg 01/14/21 15:57 01/14/21 16:45 Clindamycin Hcl 150 Mg Cap PO 01/14/21 15:58 600 mg ONETIME ONE Administration - Re-Assessments/Exams Free Text/Narrative Re-Assessment/Exam: 01/14/21 16:01 Patient presents to the ER for her upper tooth pain, and COVID-19 symptoms, we will go ahead get a basic chest x-ray, CBC and CMP for initial evaluation, and will start her on clindamycin as she states this seems to work best for her regarding tooth complaints. Patient verbalized understanding at this time. 01/14/21 16:51 Patient CBC has come back, and is mildly low on her white count which is typical for viral illnesses. Patient chest x-ray also demonstrates no acute abnormalities or sign of Covid like pneumonia. Metabolic panel still pending. 01/14/21 16:59 CMP has returned is unremarkable, we will go ahead and discharge her home with general recommendations of a prescription for clindamycin for her tooth infection. Departure - Departure Time of Disposition: 16:59 Disposition: Home, Self-Care 01 Condition: Good Clinical Impression: COVID-19, Pain, dental - Discharge Information *PRESCRIPTION DRUG MONITORING PROGRAM REVIEWED*: No *COPY OF PRESCRIPTION DRUG MONITORING REPORT IN PATIENT BROOKE: No Prescriptions: Clindamycin HCl 300 mg PO TID 7 Days #21 capsule Instructions: 10 Things You Can Do to Manage Your COVID-19 Symptoms at Home - [facility] Referrals: Olivia,Anabela L, PA-C [Primary Care Provider] - Forms: ED Department Discharge Additional Instructions: You have been evaluated in the ED for your ongoing Covid symptoms and dental pain. You have been provided with a script for clindamycin please take this medication as directed. Please note this antibiotic can take up to 48 hours to provide coverage. If you do not notice an improvement in the swelling within 3 days time I recommend you seek care for reevaluation for change in antibiotics. This antibiotic can cause diarrhea, recommend that you start a probiotic while taking this medication. You may use hot pack/ ice packs to the affected area as tolerated in 15-20 minute intervals. You also had a chest x-ray done at today's visit, and some basic labs for ongoing management of your COVID-19 symptoms, and everything is in line for a viral infection like COVID-19, your x-ray was not remarkable for COVID-19 pneumonia. Please follow all other recommendations set forth by your Covid bods developer, for quarantine purposes and other management. You may continue to use your previously prescribed pain medications for ongoing body aches and discomfort. Your medication was electronically sent to the [place] pharmacy located in the [facility] grocery store. Please return to the ED if your symptoms change or worsen. Sepsis Event Note (ED) - Evaluation Sepsis Screening Result: No Definite Risk - Focused Exam Vital Signs: Vital Signs Temp Pulse Resp BP Pulse Ox 01/14/21 15:28 97.2 F 82 20 145/87 H 100
--- NOTE | 2021-01-14 16:31 | CR ---
Chest: Portable view of the chest was obtained. Comparison: Prior chest x-ray of 06/12/18. Heart size and mediastinum are within normal limits. Lungs are clear with no acute parenchymal change. Bony structures show nothing acute. Impression: 1. Nothing acute is appreciated on portable chest x-ray. Diagnostic code #1
== END 2021-01-14 17:35 | disposition home or self-care (01) ==
LOC: JD.ED 14:47
DX: U07.1 COVID-19 (principal); K08.89 Other specified disorders of teeth and supporting structures; E03.9 Hypothyroidism, unspecified; E66.9 Obesity, unspecified; Z72.0 Tobacco use; Z68.29 Body mass index [BMI] 29.0-29.9, adult; Z79.899 Other long term (current) drug therapy
CPT/HCPCS: 36415; 71045; 80053; 85025; 99283; A9270

== ENCOUNTER 2021-07-16 08:02 | Emergency (ER) | payer OTHER ==
[2021-07-16] MEDS ORDERED: Ondansetron 4 MG/2 ML SDV IVPUSH ONE (09:09)
[2021-07-16] MEDS ORDERED: Sodium Chloride 0.9% 1,000 ML IV STA (09:09)
[2021-07-16] MEDS ORDERED: Sodium Chloride 0.9% 10 ML Syringe FLUSH PRN ×2 (09:09→10:53)
[2021-07-16] MEDS ORDERED: HYDROmorphone 1 MG/ML Syringe IVPUSH ONE (09:11)
[2021-07-16] MEDS ORDERED: FLU Vacc QS2021-22 36MOS UP/PF 60 MCG/0.5 ML Syringe IM ONE (09:15)
--- NOTE | 2021-07-16 09:17 | EDM.PDOC ---
ED HPI GENERAL MEDICAL PROBLEM - General Chief Complaint: Abdominal Pain Stated Complaint: ABD PAIN Time Seen by Provider: 07/16/21 08:52 Source of Information: Reports: Patient History Limitations: Reports: No Limitations - History of Present Illness INITIAL COMMENTS - FREE TEXT/NARRATIVE: The patient presents with abdominal pain. The pain started a few days ago. The pain is in the RUQ and LLQ. She has nausea but no vomiting. She had a bowel movement yesterday and there was a little blood. She felt feverish and had chills. She has no cough, congestion, runny nose chest pain or shortness of breath. She has no dysuria or diarrhea. She still has her appendix and gallbladder. Onset: Gradual Duration: Day(s): Location: Reports: Abdomen Quality: Reports: Sharp Severity: Moderate Improves with: Reports: None Worsens with: Reports: None Associated Symptoms: Reports: Fever/Chills, Nausea/Vomiting. Denies: Chest Pain, Cough, Headaches, Shortness of Breath Upper Mid-Anterior Abdomen Pain Score (Numeric/FACES): 6 - Related Data Allergies Allergy/AdvReac Type Severity Reaction Status Date / Time No Known Allergies Allergy Verified 07/16/21 08:59 Home Meds: Home Meds Levothyroxine [Synthroid] 50 mcg PO BEDTIME 11/28/14 [History] Sertraline [Zoloft] 150 mg PO BEDTIME 11/28/14 [History] Zolpidem [Ambien] 10 mg PO BEDTIME 11/28/14 [History] traMADol [Ultram] 2 tab PO TID 11/28/14 [History] Hydrocodone/Acetaminophen [Hydrocodone-Acetamin 5-325 mg] 1 - 2 each PO Q6H PRN #10 tablet 07/16/21 [Rx] Ondansetron [Zofran ODT] 4 mg PO Q6H PRN #20 tab.dis 07/16/21 [Rx] Pregabalin [Lyrica] 75 mg PO DAILY 07/16/21 [History] Past Medical History HEENT History: Reports: Impaired Vision Other HEENT History: Wears glasses [employer] History: Reports: Musculoskeletal History: Reports: Fibromyalgia Psychiatric History: Reports: Anxiety, Depression Endocrine/Metabolic History: Reports: Hypothyroidism, Obesity/BMI 30+ - Infectious Disease History Infectious Disease History: Reports: Novel Coronavirus - Past Surgical History HEENT Surgical History: Reports: Myringotomy w Tube(s), Oral Surgery, Tonsillectomy GI Surgical History: Reports: Hernia, Abdominal Social & Family History - Family History Family Medical History: No Pertinent Family History - Tobacco Use Tobacco Use Status *Q: Never Tobacco User Second Hand Smoke Exposure: No - Caffeine Use Caffeine Use: Reports: None - Recreational Drug Use Recreational Drug Use: No - Living Situation & Occupation Living situation: Reports: , with Spouse, with Family (3 kids + 's parents) Occupation: Unemployed ED ROS GENERAL - Review of Systems Review Of Systems: See Below Constitutional: Reports: Fever, Chills HEENT: Reports: No Symptoms Respiratory: Reports: No Symptoms Cardiovascular: Reports: No Symptoms Endocrine: Reports: No Symptoms GI/Abdominal: Reports: Abdominal Pain, Bloody Stool, Nausea. Denies: Diarrhea, Vomiting : Reports: No Symptoms Musculoskeletal: Reports: No Symptoms ED EXAM, GI/ABD - Physical Exam Exam: See Below Exam Limited By: No Limitations General Appearance: Alert, No Apparent Distress Ears: Normal External Exam Nose: Normal Inspection Head: Atraumatic, Normocephalic Neck: Normal Inspection Respiratory/Chest: No Respiratory Distress, Lungs Clear, Normal Breath Sounds Cardiovascular: Regular Rate, Rhythm, No Edema, No Murmur GI/Abdominal Exam: Soft, No Organomegaly, No Mass, Tender (Moderate tenderness to the RUQ and LLQ abdominal pain) Course - Vital Signs Last Recorded V/S: Last Vital Signs Temp 98.5 F 07/16/21 08:51 Pulse 70 07/16/21 08:51 Resp 14 07/16/21 08:51 BP 137/92 H 07/16/21 08:51 Pulse Ox 98 07/16/21 08:51 - Orders/Labs/Meds Orders: Active Orders 24 hr Category Date Time Status Peripheral IV Care [RC] . DIRECTED Care 07/16/21 09:10 Active Vaccine to be Administered/Admin Charge [RC] ASDIRECTED Care 07/16/21 09:03 Active Sodium Chloride 0.9% [Saline Flush] Med 07/16/21 09:09 Active 10 ml FLUSH ASDIRECTED PRN Sodium Chloride 0.9% [Saline Flush] Med 07/16/21 10:53 Active 10 ml FLUSH ONETIME PRN ED Antiemetic Medication Reflex [OM.PC] Stat Oth 07/16/21 09:10 Ordered Peripheral IV Insertion Adult [OM.PC] Stat Oth 07/16/21 09:09 Ordered Medication Orders Sodium Chloride (Sodium Chloride 0.9% 10 Ml Syringe) 10 ml FLUSH ASDIRECTED PRN PRN Reason: Keep Vein Open Last Admin: 07/16/21 10:21 Dose: 10 ml Documented by: INEZ Sodium Chloride (Sodium Chloride 0.9% 10 Ml Syringe) 10 ml FLUSH ONETIME PRN PRN Reason: Keep Vein Open Last Admin: 07/16/21 10:57 Dose: 10 ml Documented by: PHILIP Labs: Laboratory Tests 07/16/21 07/16/21 07/16/21 Range/Units 10:19 10:19 10:19 WBC 13.52 H (3.98-10.04) K/mm3 RBC 4.26 (3.98-5.22) M/mm3 Hgb 12.5 (11.2-15.7) gm/dl Hct 38.4 (34.1-44.9) % MCV 90.1 (79.4-94.8) fl MCH 29.3 (25.6-32.2) pg MCHC 32.6 (32.2-35.5) g/dl RDW Std Deviation 43.9 (36.4-46.3) fL Plt Count 396 H D (182-369) K/mm3 MPV 9.6 (9.4-12.3) fl Neut % (Auto) 85.8 H (34.0-71.1) % Lymph % (Auto) 10.9 L (19.3-51.7) % [place] % (Auto) 3.1 L (4.7-12.5) % Eos % (Auto) 0 L (0.7-5.8) Baso % (Auto) 0.0 L (0.1-1.2) % Neut # (Auto) 11.60 H (1.56-6.13) K/mm3 Lymph # (Auto) 1.47 (1.18-3.74) K/mm3 [place] # (Auto) 0.42 H (0.24-0.36) K/mm3 Eos # (Auto) 0.00 L (0.04-0.36) K/mm3 Baso # (Auto) 0.00 L (0.01-0.08) K/mm3 Sodium 142 (136-145) mEq/L Potassium 4.3 (3.5-5.1) mEq/L Chloride 105 (98-107) mEq/L Carbon Dioxide 28 (21-32) mEq/L Anion Gap 13.3 (5-15) BUN 17 (7-18) mg/dL Creatinine 0.8 (0.55-1.02) mg/dL Est Cr Clr Drug Dosing 92.76 mL/min Estimated GFR (MDRD) > 60 (>60) mL/min BUN/Creatinine Ratio 21.3 H (14-18) Glucose 104 H (70-99) mg/dL Calcium 8.8 (8.5-10.1) mg/dL Total Bilirubin 0.3 (0.2-1.0) mg/dL AST 5 L (15-37) U/L ALT 15 (14-59) U/L Alkaline Phosphatase 93 (46-116) U/L Total Protein 8.2 (6.4-8.2) g/dl Albumin 4.4 (3.4-5.0) g/dl Globulin 3.8 gm/dL Albumin/Globulin Ratio 1.2 (1-2) Lipase 84 (73-393) U/L HCG, Qual (NEGATIVE) Urine Color Yellow (Yellow) Urine Appearance Cloudy H (Clear) Urine pH 6.0 (5.0-8.0) Ur Specific [place] > or = 1.030 (1.005-1.030) Urine Protein Trace H (Negative) Urine Glucose (UA) Negative (Negative) Urine Ketones Negative (Negative) Urine Occult Blood 2+ H (Negative) Urine Nitrite Negative (Negative) Urine Bilirubin 1+ H (Negative) Urine Urobilinogen 0.2 (0.2-1.0) Ur Leukocyte Esterase Negative (Negative) U Hyaline Cast (Auto) 0-5 (0-5) /lpf Urine RBC 10-20 H (0-5) /hpf Urine WBC 0-5 (0-5) /hpf Ur Squamous Epith Cells 5-10 H (0-5) /hpf Urine Bacteria Moderate H (FEW) /hpf Urine Mucus Many H (FEW) /hpf 07/16/ Range/Units 10:19 WBC (3.98-10.04) K/mm3 RBC (3.98-5.22) M/mm3 Hgb (11.2-15.7) gm/dl Hct (34.1-44.9) % MCV (79.4-94.8) fl MCH (25.6-32.2) pg MCHC (32.2-35.5) g/dl RDW Std Deviation (36.4-46.3) fL Plt Count (182-369) K/mm3 MPV (9.4-12.3) fl Neut % (Auto) (34.0-71.1) % Lymph % (Auto) (19.3-51.7) % [place] % (Auto) (4.7-12.5) % Eos % (Auto) (0.7-5.8) Baso % (Auto) (0.1-1.2) % Neut # (Auto) (1.56-6.13) K/mm3 Lymph # (Auto) (1.18-3.74) K/mm3 [place] # (Auto) (0.24-0.36) K/mm3 Eos # (Auto) (0.04-0.36) K/mm3 Baso # (Auto) (0.01-0.08) K/mm3 Sodium (136-145) mEq/L Potassium (3.5-5.1) mEq/L Chloride (98-107) mEq/L Carbon Dioxide (21-32) mEq/L Anion Gap (5-15) BUN (7-18) mg/dL Creatinine (0.55-1.02) mg/dL Est Cr Clr Drug Dosing mL/min Estimated GFR (MDRD) (>60) mL/min BUN/Creatinine Ratio (14-18) Glucose (70-99) mg/dL Calcium (8.5-10.1) mg/dL Total Bilirubin (0.2-1.0) mg/dL AST (15-37) U/L ALT (14-59) U/L Alkaline Phosphatase (46-116) U/L Total Protein (6.4-8.2) g/dl Albumin (3.4-5.0) g/dl Globulin gm/dL Albumin/Globulin Ratio (1-2) Lipase (73-393) U/L HCG, Qual Negative (NEGATIVE) Urine Color (Yellow) Urine Appearance (Clear) Urine pH (5.0-8.0) Ur Specific [place] (1.005-1.030) Urine Protein (Negative) Urine Glucose (UA) (Negative) Urine Ketones (Negative) Urine Occult Blood (Negative) Urine Nitrite (Negative) Urine Bilirubin (Negative) Urine Urobilinogen (0.2-1.0) Ur Leukocyte Esterase (Negative) U Hyaline Cast (Auto) (0-5) /lpf Urine RBC (0-5) /hpf Urine WBC (0-5) /hpf Ur Squamous Epith Cells (0-5) /hpf Urine Bacteria (FEW) /hpf Urine Mucus (FEW) /hpf Meds: Medications Generic Name Dose Route Start Last Admin Trade Name Freq PRN Reason Stop Dose Admin Sodium Chloride 10 ml 07/16/21 09:09 07/16/21 10:21 Sodium Chloride 0.9% 10 Ml Syringe FLUSH 10 ml ASDIRECTED PRN Administration Keep Vein Open Sodium Chloride 10 ml 07/16/21 10:53 07/16/21 10:57 Sodium Chloride 0.9% 10 Ml Syringe FLUSH 10 ml ONETIME PRN Administration Keep Vein Open Discontinued Medications Generic Name Dose Route Start Last Admin Trade Name Freq PRN Reason Stop Dose Admin Diatrizoate Meglum/Diatrizoate Sod 45 ml 07/16/21 10:53 07/16/21 10:56 Diatrizoate Meglumine/Diatrizoate Sodium 37% 120 Ml Bottle PO 07/16/21 10:54 45 ml ONETIME ONE Administration Hydromorphone HCl 1 mg 07/16/21 09:11 07/16/21 10:11 Hydromorphone 1 Mg/Ml Syringe IVPUSH 07/16/21 09:12 1 mg ONETIME ONE Administration Sodium Chloride 1,000 mls @ 1,000 mls/hr 07/16/21 09:09 07/16/21 10:14 Normal Saline IV 07/16/21 10:08 1,000 mls/hr .BOLUS STA Administration Influenza Virus Vaccine 60 mcg 07/16/21 09:15 07/16/21 10:14 Flu Vacc [id number] 36mos Up/Pf 60 Mcg/0.5 Ml Syringe IM 07/16/21 09:16 60 mcg .ONCE ONE Administration Iopamidol 100 ml 07/16/21 10:53 07/16/21 10:56 Iopamidol 612 Mg/Ml 100 Ml Bottle IVPUSH 07/16/21 10:54 100 ml ONETIME ONE Administration Ondansetron HCl 4 mg 07/16/21 09:09 07/16/21 10:12 Ondansetron 4 Mg/2 Ml Sdv IVPUSH 07/16/21 09:10 4 mg ONETIME ONE Administration - Re-Assessments/Exams Free Text/Narrative Re-Assessment/Exam: 07/16/21 09:16 I ordered an IV NS 1L bolus, zofran 4mg IV, dilaudid 1mg IV, labs, UA and a CT of her abdomen and pelvis. 07/16/21 11:49 Her WBC was elevated at 13.52. Her CMP looks good. Her lipase is normal. Her HCG is negative. Her UA shows no UTI but she does appear dehydrated. Her CT shows satisfactory position of IUD. Mild increased stool within the colon. Nothing acute is otherwise seen on CT study of the abdomen and pelvis. She still has some pain. I ordered some more dilaudid. I feel she also has a viral GI bug and constipation. I will get her on some zofran and something for pain. Departure - Departure Time of Disposition: 11:55 Disposition: Home, Self-Care 01 Condition: Good Clinical Impression: Viral gastroenteritis Abdominal pain Qualifiers: Abdominal location: generalized Qualified Code(s): R10.84 - Generalized abdominal pain Constipation Qualifiers: Constipation type: other constipation type Qualified Code(s): K59.09 - Other constipation - Discharge Information *PRESCRIPTION DRUG MONITORING PROGRAM REVIEWED*: Not Applicable *COPY OF PRESCRIPTION DRUG MONITORING REPORT IN PATIENT [place]: Not Applicable Prescriptions: Hydrocodone/Acetaminophen [Hydrocodone-Acetamin 5-325 mg] 1 - 2 each PO Q6H PRN #10 tablet PRN Reason: Pain Ondansetron [Zofran ODT] 4 mg PO Q6H PRN #20 tab.dis PRN Reason: Nausea\vomiting Referrals: Anabela Baker PA-C [Primary Care Provider] - 1 Week Forms: ED Department Discharge Additional Instructions: Drink plenty of fluids. Take zofran every 6 hours as needed for nausea and vomiting. Try some magnesium citrate to help have a bowel movement. Do not take any more prednisone. That can cause more stomach pain. Take pepcid daily for 2 weeks. Take the tylenol or motrin as needed for pain. If that does not help, try the hydrocodone. Follow up with your provider within a week. Please return if you are worse. Sepsis Event Note (ED) - Focused Exam Vital Signs: Vital Signs Temp Pulse Resp BP Pulse Ox 07/16/21 08:51 98.5 F 70 14 137/92 H 98 - My Orders Last 24 Hours: My Active Orders 07/16/21 09:03 Vaccine to be Administered/Admin Charge [RC] ASDIRECTED 07/16/21 09:09 Sodium Chloride 0.9% [Saline Flush] 10 ml FLUSH ASDIRECTED PRN Peripheral IV Insertion Adult [OM.PC] Stat 07/16/21 09:10 Peripheral IV Care [RC] . DIRECTED ED Antiemetic Medication Reflex [OM.PC] Stat 07/16/21 10:53 Sodium Chloride 0.9% [Saline Flush] 10 ml FLUSH ONETIME PRN - Assessment/Plan Last 24 Hours: My Active Orders 07/16/21 09:03 Vaccine to be Administered/Admin Charge [RC] ASDIRECTED 07/16/21 09:09 Sodium Chloride 0.9% [Saline Flush] 10 ml FLUSH ASDIRECTED PRN Peripheral IV Insertion Adult [OM.PC] Stat 07/16/21 09:10 Peripheral IV Care [RC] . DIRECTED ED Antiemetic Medication Reflex [OM.PC] Stat 07/16/21 10:53 Sodium Chloride 0.9% [Saline Flush] 10 ml FLUSH ONETIME PRN
[2021-07-16] MEDS ORDERED: Diatrizoate Meglumine/Diatrizoate Sodium 37% 120 ML Bottle PO ONE (10:53)
[2021-07-16] MEDS ORDERED: Iopamidol 612 MG/ML 100 ML Bottle IVPUSH ONE (10:53)
--- NOTE | 2021-07-16 11:19 | CT ---
CT abdomen and pelvis Technique: Multiple axial sections were obtained from above the dome of the diaphragm inferiorly through the pubic symphysis. Intravenous and oral contrast were utilized. Reconstructed coronal and sagittal images were obtained. Comparison: No prior CT abdomen or pelvis study is available, prior plain film abdominal study of 06/07/10 is available. Findings: Visualized lung bases show nothing acute. Liver contains no focal abnormality. Spleen size is normal. Adrenal glands show no nodule. Pancreas shows no discrete abnormality. Gallbladder contains no calcified gallstones. Kidneys show symmetric contrast enhancement with no hydronephrosis or mass. Abdominal aorta shows no aneurysm. No retroperitoneal adenopathy or mesenteric abnormalities are seen. No pelvic mass or adenopathy is seen. Increased stool is noted throughout the colon. Appendix is not definitely visualized. IUD is noted within the uterus in satisfactory position. No free fluid or inflammatory change is seen. Bone window settings were reviewed. No acute osseous finding is appreciated. Impression: 1. Satisfactory position of IUD. Mild increased stool within the colon. 2. Nothing acute is otherwise seen on CT study of the abdomen and pelvis. Diagnostic code #2
[2021-07-16] MEDS ORDERED: HYDROmorphone 0.5 MG/0.5 ML Syringe IVPUSH ONE (11:49)
[2021-07-16 12:17] VITALS: BP 126/82; PULSE 99
== END 2021-07-16 12:25 | disposition home or self-care (01) ==
LOC: JD.ED 08:02
DX: A08.4 Viral intestinal infection, unspecified (principal); K59.09 Other constipation; E03.9 Hypothyroidism, unspecified; E66.9 Obesity, unspecified; Z68.31 Body mass index [BMI] 31.0-31.9, adult; Z23 Encounter for immunization; Z79.899 Other long term (current) drug therapy
CPT/HCPCS: 36415; 74177; 80053; 81001; 83690; 84703; 85025; 90471; 90686; 96374; 96375; 96376; 99284; J1170; J2405; J7030; Q9963; Q9967; G0008

== ENCOUNTER 2023-05-17 16:41 | Emergency (ER) | payer SELFPAY ==
[2023-05-17] MEDS ORDERED: Rabies Immune Globulin PF 150 Units/ML 2 ML SDV IM ONE (17:37)
[2023-05-17] MEDS ORDERED: Rabies Vaccine (Avian) 2.5 Unit Inj Kit IM ONE (17:37)
[2023-05-17] MEDS ORDERED: Amoxicillin/Clavulanate K 875-125 MG Tab PO ONE (17:39)
[2023-05-17 19:05] VITALS: BP 124/80; PULSE 68
== END 2023-05-17 18:03 | disposition home or self-care (01) ==
LOC: JD.ED 16:41
DX: S61.257A Open bite of left little finger without damage to nail, initial encounter (principal); S61.256A Open bite of right little finger without damage to nail, initial encounter; F17.210 Nicotine dependence, cigarettes, uncomplicated; E03.9 Hypothyroidism, unspecified; E66.9 Obesity, unspecified; Z86.16 Personal history of COVID-19; Z79.899 Other long term (current) drug therapy; W55.01XA Bitten by cat, initial encounter
CPT/HCPCS: 99283; A9270; 99282